=== PATIENT | male | born 1995 | race Caucasian/White ===

== ENCOUNTER 2019-05-17 16:02 | Emergency (ER) | payer MEDICAID, MEDICARE ==
[~2019-05-17] VITALS: Ht 185.4 cm; Wt 81.0 kg
[~2019-05-17 16:02] MED LIST: BISM-116 PO; CLON-529 PO; DEXL30CA3 PO; DICY10CA88 PO; IBUP-1984 PO; LEVA15HF4 IH; LITH600C4 PO; OLAN10TA19 PO; [UNRECOGNIZED DRUG - CODE] BC
[2019-05-17 16:15] VITALS: BP 128/75
[2019-05-17] MEDS ORDERED: OLAN10TA3 PO (16:21)
[2019-05-17] MEDS ORDERED: DIPH25CA83 PO (16:21)
== END 2019-05-17 16:40 | disposition home or self-care (01) ==
LOC: ER 16:03
DX: F31.9 Bipolar disorder, unspecified (principal); Z76.0 Encounter for issue of repeat prescription; Z79.899 Other long term (current) drug therapy
CPT/HCPCS: 99283